=== PATIENT | male | born 1990 | race Hispanic/Latino ===

== ENCOUNTER 2017-01-07 16:45 | Emergency (ER) | payer SELFPAY ==
[2017-01-07 16:51] VITALS: BP 118/78
[2017-01-07] MEDS ORDERED: AMOXICILLIN875 MG PO (17:20)
== END 2017-01-07 17:14 | disposition home or self-care (01) | DRG 153 ==
LOC: ED 16:45
DX: H66.91 Otitis media, unspecified, right ear (principal); H61.21 Impacted cerumen, right ear

== ENCOUNTER 2017-03-22 17:51 | Emergency (ER) | payer SELFPAY ==
[~2017-03-22] VITALS: Ht 170.2 cm; Wt 79.0 kg
[~2017-03-22 17:51] MED LIST: AMOXICILLIN875 MG PO
[2017-03-22 18:44] LABS: URINE BLOOD DIPSTICK NEGATIVE (NEGATIVE); URINE GLUCOSE - DIPSTICK NEGATIVE (NEGATIVE); URINE KETONE TRACE mg/dL (NEGATIVE); URINE LEUK ESTERASE NEGATIVE (NEGATIVE); URINE NITRITE - DIPSTICK NEGATIVE (Negative); URINE PH 6.5 (4.5-8.0); URINE PROTEIN - DIPSTICK 100 mg/dL (NEG-TRACE); URINE SPECIFIC GRAVITY 1.015
[2017-03-22 18:47] LABS: URINE BILIRUBIN - DIPSTICK LARGE (NEGATIVE)
[2017-03-22 18:48] LABS: URINE CLARITY CLOUDY; URINE COLOR BROWN
[2017-03-22 18:51] LABS: URINE SQUAMOUS EPITHELIAL CELL FEW EPI/hpf (0-FEW)
[2017-03-22 19:33] LABS: HEMATOCRIT 44.8 % (39.0-50.0); HEMOGLOBIN 15.2 g/dl (14.0-18.0); IMMATURE GRANULOCYTES 0.9 % (0.0-1.0); MEAN CELL VOLUME 83.4 fL CALC (80.0-100.0); MEAN CORPUSCULAR HGB 28.3 pG CALC (26.0-32.0); MEAN CORPUSCULAR HGB CONC 33.9 g/L CALC (32.0-36.0); PLATELET COUNT 209 thou/uL (130-400); RED BLOOD COUNT 5.37 mill/uL (4.70-6.10); RED CELL DISTRI WIDTH 14.5 % (11.5-15.5)
[2017-03-22 19:41] LABS: ALBUMIN 3.8 g/dL (3.2-5.0); ALKALINE PHOSPHATASE 446 u/l (38-126); AMYLASE 45 u/l (30-110); ANION GAP 16 (6-22 (CALC)); BILIRUBIN, TOTAL 6.7 mg/dL (0.0-1.4); BUN 8 mg/dL (9-20); BUN/CREATININE RATIO 12 (12-20 (CALC)); CALCIUM 8.8 mg/dL (8.4-10.2); CARBON DIOXIDE 27 mmol/l (22-30); CHLORIDE 100 mmol/l (95-108); CREATININE 0.7 mg/dL (0.7-1.3); GFR > 60 ML/MIN (>=60 (CALC)); GFR FOR AFR.AMER. > 60 ML/MIN (>=60 (CALC)); GLUCOSE 91 mg/dL (75-110); LIPASE 89 u/l (23-300); POTASSIUM 3.9 mmol/l (3.5-5.1); SGOT/AST 515 u/l (17-59); SGPT/ALT 413 u/l (21-72); SODIUM 138 mmol/l (137-146); TOTAL PROTEIN 7.9 g/dL (6.3-8.2)
[2017-03-22 19:54] LABS: BAND 8 % (0-8); MANUAL DIFFERENTIAL YES
[2017-03-22 19:55] LABS: IMMATURE CELLS 5 %
[2017-03-23 02:40] VITALS: BP 138/71
== END 2017-03-23 02:40 | disposition short-term general hospital (02) | DRG 446 ==
LOC: ED 17:51
PROVIDERS: Emergency Medicine
DX: K83.1 Obstruction of bile duct (principal); D72.829 Elevated white blood cell count, unspecified; R50.9 Fever, unspecified; M79.1 Myalgia

== ENCOUNTER 2017-07-05 16:05 | Emergency (ER) | payer SELFPAY ==
[~2017-07-05] VITALS: Ht 170.2 cm; Wt 65.0 kg
[2017-07-05 16:09] VITALS: BP 128/75
== END 2017-07-05 19:30 | disposition left against medical advice (07) | DRG 951 ==
LOC: ED 16:05 → LWOBS 17:30
DX: Z91.19 Patient's noncompliance with other medical treatment and regimen (principal)

== ENCOUNTER 2019-02-02 17:16 | Emergency (ER) | payer SELFPAY ==
[~2019-02-02] VITALS: Ht 170.2 cm; Wt 72.0 kg
[2019-02-02] MEDS ORDERED: DOXYCYCL HYC100 MG PO (17:59)
[2019-02-02 18:50] VITALS: BP 133/66
== END 2019-02-02 18:50 | disposition home or self-care (01) | DRG 728 ==
LOC: ED 17:16
DX: A64 Unspecified sexually transmitted disease (principal)

== ENCOUNTER 2019-04-17 18:48 | Emergency (ER) | payer SELFPAY ==
[~2019-04-17] VITALS: Ht 170.2 cm; Wt 78.2 kg
[~2019-04-17 18:48] MED LIST changes: +DOXYCYCL HYC100 MG PO
[2019-04-17 20:20] VITALS: BP 131/69
== END 2019-04-17 20:20 | disposition home or self-care (01) | DRG 690 ==
LOC: ED 18:48
DX: N34.2 Other urethritis (principal)

== ENCOUNTER 2019-07-11 | Emergency (ER) | payer SELFPAY ==
[2019-07-11 15:21] LABS: URINE BILIRUBIN - DIPSTICK NEGATIVE (NEGATIVE); URINE BLOOD DIPSTICK NEGATIVE (NEGATIVE); URINE COLOR YELLOW; URINE GLUCOSE - DIPSTICK NEGATIVE (NEGATIVE); URINE KETONE NEGATIVE (NEGATIVE); URINE LEUK ESTERASE NEGATIVE (NEGATIVE); URINE NITRITE - DIPSTICK NEGATIVE (Negative); URINE PH 6.5 (4.5-8.0); URINE PROTEIN - DIPSTICK NEGATIVE (NEG-TRACE); URINE SPECIFIC GRAVITY <=1.005; URINE UROBILINOGEN - DIPSTICK 0.2 E.U./dL (0.2)
[2019-07-11] MEDS ORDERED: FAMCICLOVIR500 MG PO (15:46)
== END 2019-07-11 16:10 | disposition home or self-care (01) | DRG 728 ==
DX: A60.01 Herpesviral infection of penis (principal)
CPT/HCPCS: J0561

== ENCOUNTER 2019-07-21 17:38 | Emergency (ER) | payer SELFPAY ==
[~2019-07-21 17:38] MED LIST changes: +FAMCICLOVIR500 MG PO
[2019-07-21] MEDS ORDERED: FAMCICLOVIR250 MG PO (18:16)
[2019-07-21 18:20] VITALS: BP 152/84
== END 2019-07-21 18:20 | disposition home or self-care (01) | DRG 728 ==
LOC: ED 17:38
DX: A60.01 Herpesviral infection of penis (principal)

== ENCOUNTER 2024-07-26 11:15 | Emergency (ER) | payer SELFPAY ==
[~2024-07-26] VITALS: Ht 170.2 cm; Wt 70.0 kg
[~2024-07-26 11:15] MED LIST changes: +FAMCICLOVIR250 MG PO
[2024-07-26 12:51] LABS: BASO% 0.4 % (0-3); EOS% 0.4 % (0-8); HEMATOCRIT 42.6 % (39.0-50.0); HEMOGLOBIN 14.3 g/dl (14.0-18.0); LYMPH% 15.8 % (15-41); MEAN CELL VOLUME 84.4 fL CALC (80.0-100.0); MEAN CORPUSCULAR HGB 28.3 pG CALC (26.0-32.0); MEAN CORPUSCULAR HGB CONC 33.6 g/dL CAL (32.0-36.0); MONO% 6.4 % (2-13); NEUT# 6.97 thou/uL (1.82-7.42); RED BLOOD COUNT 5.05 mill/uL (4.70-6.10); RED CELL DISTRI WIDTH 12.5 % (11.5-15.5)
[2024-07-26 13:03] LABS: ALBUMIN 4.6 g/dL (3.2-5.0); CREATININE 0.6 mg/dL (0.7-1.3); POTASSIUM 3.9 mmol/l (3.5-5.1); TOTAL PROTEIN 7.7 g/dL (6.3-8.2)
[2024-07-26] MEDS ORDERED: DOXYCYCLINE HYCLATE 100 MG/CAP PO ONE (13:15)
[2024-07-26 14:08] LABS: URINE BILIRUBIN - DIPSTICK Negative (NEGATIVE); URINE BLOOD DIPSTICK Trace-intact (NEGATIVE); URINE GLUCOSE - DIPSTICK Negative (NEGATIVE); URINE KETONE Negative (NEGATIVE); URINE LEUK ESTERASE Trace (NEGATIVE); URINE NITRITE - DIPSTICK Negative (Negative); URINE PROTEIN - DIPSTICK Negative (NEG-TRACE); URINE UROBILINOGEN - DIPSTICK 0.2 E.U./dL (0.2)
[2024-07-26 14:13] LABS: URINE COLOR Yellow
[2024-07-26] MEDS ORDERED: VIBRAMYCIN100 M2 PO (14:43)
[2024-07-26 14:47] VITALS: BP 130/81
== END 2024-07-26 14:52 | disposition home or self-care (01) | DRG 690 ==
LOC: ED 11:15
PROVIDERS: Nurse Practitioner Family
DX: N34.2 Other urethritis (principal); Z20.2 Contact with and (suspected) exposure to infections with a predominantly sexual mode of transmission